=== PATIENT | female | born 1970 | race Caucasian/White ===

== ENCOUNTER → 2019-05-18 | Outpatient (CLI) | payer OTHER | LOC: M.CT 08:00 | DX: Z13.6 Encounter for screening for cardiovascular disorders (principal) ==

== ENCOUNTER → 2019-07-06 | Outpatient (CLI) | payer OTHER ==
--- NOTE | 2019-07-06 16:37 | EXE ---
[place] [address] STRESS ECHOCARDIOGRAM Name: SOPHIA ENGLAND Room: [facility]#: [id number] Admission: 07/06/19 Attend Phys: Michael Rangel, Discharge: Date of : 72 Date of Service: 07/06/19 1635 Report #: [id number] THIS REPORT FOR: cc: Bruno Isaacs MD, Dean L. MD Liston, Michael J. MD [facility] ~ APPROVED REPORT Study performed: 07/06/2019 15:32:44 Exam: Stress Echocardiogram Indication: Dyspnea , Chest pain Patient Location: Out-Patient Stress Nurse: Darlin Heaton RN Supervising Physician: Michael Rangel MD Ht: 5 ft 3 in HR: 90 bpm BP: 115/74 mmHg Medical History Cardiac Risk Factors: FHX of CAD Procedure The patient underwent an Exercise Stress Test using the Chacho Protocol. Blood pressure, heart rate, and EKG were monitored. An Echocardiogram was performed by indoor plant technician in four stages in quad fashion. At peak stress, four selected images were obtained and placed side by side with resting images for comparison. Stress Test Details Stress Test: Exercise stress testing was performed using a Chacho protocol. HR Resting HR: 90 bpm Max Heart Rate (APMHR): 172 bpm Max HR Achieved: 167 bpm Target HR (85% APMHR): 146 bpm % of APMHR: 97 Recovery HR: 98 bpm HR response to stress: Normal HR response to stress BP Resting BP: 115/74 mmHg Max BP: 152/75 mmHg Recovery BP: 113/73 mmHg BP response to stress: [place] [address] STRESS ECHOCARDIOGRAM Name: SOPHIA ENGLAND Room: [facility]#: [id number] Admission: 07/06/19 Attend Phys: Michael Rangel, Discharge: Date of : 72 Date of Service: 07/06/19 1635 Report #: [id number] stress. ECG Resting ECG: Sinus Rhythm Stress ECG: Sinus Tachycardia ST Change: None Arrhythmia: None Recovery ECG: Sinus Rhythm Recovery ST Change: None Recovery Arrhythmia: None Clinical Reason for Termination: Completed protocol Exercise duration: 6 min 14 sec Highest Stage Achieved: Stage 3: 3.4 mph at 14% grade. Exercise capacity: 7.32 METs The patient tolerated standard Chacho protocol exercise without significant cardiac symptoms. Stress ECG Conclusion The baseline 12-lead EKG shows sinus rhythm without significant ST segment or T-wave abnormality. EKGs obtained during and post exercise showed tiny rhythm and sinus tachycardia with no significant ST segment T wave changes when compared to baseline. There were no stress-induced arrhythmias. Pre-Stress Echo The resting Echocardiogram showed normal left ventricular contractility with an estimated Ejection Fraction of about 55-60%. The resting echocardiogram demonstrated normal wall motion in all wall segments. Post-Stress Echo The stress Echocardiogram showed normal left ventricular contractility with an estimated Ejection Fraction of about 65-70%. Compared to rest, there were no stress-induced wall motion abnormalities. Conclusion Clinical Response: Non-ischemic Exercise Capacity: Average Stress ECG Response: Non-ischemic Stress Echo Images: Non-ischemic There were no EKG, clinical or echocardiographic indications of ischemia with standard Chacho protocol exercise. This [place] [address] STRESS ECHOCARDIOGRAM Name: SAMANTASOPHIACONCHA MONTAGUE Room: [facility]#: [id number] Admission: 07/06/19 Attend Phys: Michael Rangel, Discharge: Date of : 72 Date of Service: 07/06/19 1635 Report #: [id number] Other Information Study Quality: Good <Conclusion> There were no EKG, clinical or echocardiographic indications of ischemia with standard Chacho protocol exercise. This is a low risk study. <ELECTRONICALLY SIGNED> By: Michael Rangel MD, [facility] 07/06/19 1635 [id number] Michael Rangel MD, FACC /INF
== END ==
LOC: EDUNIT# 05-05 15:33 → M.CRD 15:00
DX: R07.2 Precordial pain (principal)